=== PATIENT | male | born 1970 | race Caucasian/White ===

== ENCOUNTER 2020-09-02 08:23 | Day surgery (SDC) | payer OTHER ==
[2020-09-01 18:50] LABS: COVID AG,FIA SOURCE NASOPHARYNGEAL
[~2020-09-02] VITALS: Ht 175.3 cm; Wt 69.5 kg
[~2020-09-02 08:23] MED LIST: SODIUM CHLORIDE 0.9% 1,000 ML IV ONE
[2020-09-02] MEDS ORDERED: MIDAZOLAM HCL 2 MG/2 ML VIAL IVP ONE (08:24)
[2020-09-02] MEDS ORDERED: KETAMINE HCL 50 MG/ML 10 ML VIAL IVP ONE (08:24)
[2020-09-02] MEDS ORDERED: FentaNYL CITRATE PF 100 MCG/2 ML VIAL IVP ONE (08:24)
[2020-09-02] MEDS ORDERED: SODIUM CHLORIDE 0.9% 1,000 ML ONE ×2 (08:31→15:50)
[2020-09-02] MEDS ORDERED: LORazepam 2 MG/ML VIAL IVP PRN (10:00)
[2020-09-02] MEDS ORDERED: SODIUM CHLORIDE 0.9% 1,000 ML IV ONE (10:00)
[2020-09-02] MEDS ORDERED: LIDOCAINE/PF 1% 30 ML VIAL ONE (11:57)
[2020-09-02] MEDS ORDERED: SODIUM BICARBONATE 50 MEQ/50 ML VIAL ONE (11:57)
[2020-09-02] MEDS ORDERED: HEPARIN SODIUM 1000 UNITS/NS 500 ML ONE (11:58)
[2020-09-02] MEDS ORDERED: IODIXANOL 320 MG/ML 100 ML VIAL ONE (11:58)
[2020-09-02] MEDS ORDERED: IODIXANOL 320 MG/ML 50 ML VIAL ONE ×3 (11:58→14:36)
[2020-09-02 12:01] VITALS: BP 96/49
[2020-09-02] MEDS ORDERED: MEPERIDINE-PF 25 MG/ML VIAL IVP PRN (12:30)
[2020-09-02 14:41] VITALS: BP 127/77
[2020-09-02] MEDS ORDERED: FentaNYL CITRATE PF 100 MCG/2 ML VIAL ONE (15:13)
[2020-09-02] MEDS: FentaNYL CITRATE PF 100 MCG/2 ML VIAL IVP PRN ×2 (15:15→15:26)
[2020-09-02] MEDS ORDERED: HYDROmorphone 2 MG/ML SYRINGE IVP PRN ×2 (15:30→15:45)
[2020-09-02] MEDS ORDERED: HYDROmorphone 2 MG/ML SYRINGE ONE (15:38)
[2020-09-02] MEDS: HYDROmorphone 2 MG/ML SYRINGE IVP PRN ×2 (15:45→15:57)
[2020-09-02] MEDS ORDERED: KETOROLAC TROMETHAMINE 60 MG/2 ML VIAL IM ONE (16:15)
[2020-09-02] MEDS ORDERED: HYDROmorphone 2 MG/ML SYRINGE IM PRN (18:30)
[2020-09-02] MEDS ORDERED: OXYGEN THERAPY IH SCH (20:00)
== END 2020-09-02 17:30 | disposition home or self-care (01) ==
LOC: SDS 08:23
PROVIDERS: ATTEND Radiology Diagnostic Radiology
DX: C76.51 Malignant neoplasm of right lower limb (principal); Z83.3 Family history of diabetes mellitus; Z98.890 Other specified postprocedural states; Z79.899 Other long term (current) drug therapy
CPT/HCPCS: 37243; 76937; 87426; 93005; C1760; C1769; C1887; C1892; C9803; J1170; J1644; J2250; J3010; J3490 ×3; J7030; Q9967; 36245; 76001